=== PATIENT | male | born 1985 ===

== ENCOUNTER 2017-03-22 13:39 | Emergency (ER) | payer OTHER ==
[2017-03-22 13:53] VITALS: TEMP 98.1; O2SAT 98; BMI 31.3
[2017-03-22] MEDS ORDERED: Naproxen 550 mg Tab PO STA (14:21)
[2017-03-22] MEDS ORDERED: Naproxen 550 mg Tab PO ONE (14:25)
--- NOTE | 2017-03-22 14:36 | C.PDOC ---
History Of Present Illness 31 y/o male presents to ED with complaints of left heel pain for 3 weeks. Pain worse first thing in the morning and when walking. Patient denies injury, numbness, tingling, changes in sensation or any other complaints at this time. Time Seen by Provider: 03/22/17 14:01 Chief Complaint (Nursing): Lower Extremity Problem/Injury History Per: Patient History/Exam Limitations: no limitations Onset/Duration Of Symptoms: Days Current Symptoms Are (Timing): Still Present Past Medical History Reviewed: Historical Data, Nursing Documentation, Vital Signs Vital Signs: Last Vital Signs Temp 98.1 F 03/22/17 13:53 Pulse 78 03/22/17 14:49 Resp 16 03/22/17 14:49 BP 140/85 03/22/17 14:49 Pulse Ox 98 03/22/17 15:14 Family History: States: No Known Family Hx - Social History Hx Alcohol Use: No Hx Substance Use: No - Immunization History Hx Tetanus Toxoid Vaccination: No Hx Influenza Vaccination: No Hx Pneumococcal Vaccination: No Review Of Systems Except As Marked, All Systems Reviewed And Found Negative. Musculoskeletal: Positive for: Leg Pain, Foot Pain Skin: Negative for: Rash Neurological: Negative for: Weakness, Numbness Physical Exam - Physical Exam Appears: Non-toxic, No Acute Distress Skin: Normal Color, Warm Head: Atraumatic, Normacephalic Eye(s): bilateral: Normal Inspection, EOMI Nose: Normal Oral Mucosa: Moist Chest: Symmetrical Respiratory: No Accessory Muscle Use Extremity: Normal ROM, Tenderness (To left plantar aspect of foot ), No Calf Tenderness, Capillary Refill (<2 seconds), No Deformity, No Swelling Extremity: Bilateral: Normal Color And Temperature, Normal ROM Pulses: Left Dorsalis Pedis: Normal, Right Dorsalis Pedis: Normal Neurological/Psych: Oriented x3, Normal Motor, Normal Sensation Gait: Steady ED Course And Treatment O2 Sat by Pulse Oximetry: 98 (RA) - Other Rad Left foot X-Ray: Interpreted by Me, Viewed By Me Interpretation: No fracture or dislocation Progress Note: Discussed with patient treatment and prevention of Plantar Fasciitis. Patient was discharged with pain medication and information on diagnosis and advised to follow up with clinic Reevaluation Time: 14:25 Reassessment Condition: Improved Disposition - Disposition Referrals: [facility] [Outside] Disposition: HOME/ ROUTINE Disposition Time: 14:33 Condition: STABLE Additional Instructions: Use daily icing, stretching, and NSAID therapy. If symptoms persist, see a mixer operator helper hot metal for night splint and injections to the area. Return to ER if symptoms persist or worsen. Prescriptions: Naproxen [Naprosyn] 1 tab PO BID PRN #20 tab PRN Reason: Pain Instructions: Plantar Fasciitis (ED) Print Language: MALAWIAN - Clinical Impression Clinical Impression: Plantar fasciitis - Scribe Statement The provider has reviewed the documentation as recorded by the Kapil Grossman All medical record entries made by the Kapil were at my direction and personally dictated by me. I have reviewed the chart and agree that the record accurately reflects my personal performance of the history, physical exam, medical decision making, and the department course for this patient. I have also personally directed, reviewed, and agree with the discharge instructions and disposition.
[2017-03-22 14:50] VITALS: BP 140/85; PULSE 78; RESP 16
--- NOTE | 2017-03-22 15:17 | RAD ---
PROCEDURE: Left Foot Radiographs. HISTORY: pain COMPARISON: None available. FINDINGS: BONES: No acute displaced fracture. JOINTS: No dislocation. SOFT TISSUES: Soft tissue swelling. No evidence of radiopaque foreign body. OTHER FINDINGS: None. IMPRESSION: No acute displaced fracture, dislocation, or significant joint effusion identified. If symptoms persist, or if there is continued clinical concern, x-ray follow-up in 7-10 days should be considered.
== END 2017-03-22 14:49 | disposition home or self-care (01) ==
LOC: C.ER 13:39
DX: M72.2 Plantar fascial fibromatosis (principal)

== ENCOUNTER 2017-05-25 20:59 | Emergency (ER) | payer OTHER ==
[2017-05-25 21:00] VITALS: BMI 31.3
[2017-05-25] MEDS ORDERED: Sodium Chloride 0.9% 1,000 ML ONE (21:55)
[2017-05-25] MEDS ORDERED: Sodium Chloride 0.9% 1,000 ML IV ONE (21:59)
[2017-05-25 22:09] LABS: BASO # 0.1 K/uL (0.0-0.2); BASO % 0.5 % (0.0-2.0); EOS # 0.2 K/uL (0.0-0.7); EOS % 1.1 % (0.0-4.0); HEMATOCRIT 44.4 % (35.0-51.0); LYMPH # 1.5 K/uL (1.0-4.3); MEAN CELL VOLUME 86.7 fL (80.0-94.0); MEAN CORPUSCULAR HEMOGLOBIN 29.7 pg (27.0-31.0); MEAN CORPUSCULAR HGB CONC 34.2 g/dL (33.0-37.0); MEAN PLATELET VOLUME 8.1 fL (7.2-11.7); MONO # 0.9 K/uL (0.0-0.8); PLATELET COUNT 258 K/uL (130-400); RED CELL DISTRIBUTION WIDTH 13.1 % (11.5-14.5); WHITE BLOOD COUNT 17.2 K/uL (4.8-10.8)
[2017-05-25 22:13] LABS: RBC URINE 1 /hpf (0-3); URINE BILIRUBIN NEGATIVE (NEGATIVE); URINE BLOOD NEGATIVE (NEGATIVE); URINE COLOR Yellow (YELLOW); URINE GLUCOSE (UA) NORMAL (Normal); URINE KETONE NEGATIVE (NEGATIVE); URINE LEUKOCYTE ESTERASE NEG Leu/uL (Negative); URINE PROTEIN NEGATIVE (NEGATIVE); URINE UROBILINOGEN NORMAL mg/dL (0.2-1.0); WBC URINE < 1 /hpf (0-5)
[2017-05-25 22:17] LABS: CHLORIDE 97 mmol/L (98-107)
[2017-05-25 22:18] LABS: POTASSIUM 3.9 mmol/L (3.6-5.2); SODIUM 140 mmol/L (132-148)
[2017-05-25 22:20] LABS: ALB/GLOB RATIO 1.5 (1.0-2.1); ALKALINE PHOSPHATASE 79 U/L (38-126); ALT/SGPT 47 U/L (21-72); AST/SGOT 43 U/L (17-59); BILIRUBIN,TOTAL 0.6 mg/dL (0.2-1.3); BLOOD UREA NITROGEN 21 mg/dL (9-20); CARBON DIOXIDE 24 mmol/L (22-30); GFR AFRICAN-AMERICAN > 60; GLUCOSE,RANDOM 98 mg/dL (75-110); TOTAL PROTEIN 8.2 g/dL (6.3-8.3)
[2017-05-25 22:21] LABS: CALCIUM 9.1 mg/dl (8.6-10.4)
[2017-05-25] MEDS ORDERED: Iodixanol 320 MG/ML 100 ML BOTTLE IV ONE (22:55)
--- NOTE | 2017-05-25 22:56 | C.PDOC ---
History Of Present Illness 32 year old male presents to the ED with complaints of epigastric pain beginning just prior to arrival. Patient notes two episodes of vomiting. He denies fever, cough, cp, diarrhea or other complaints at this time. Time Seen by Provider: 05/25/17 22:26 Chief Complaint (Nursing): Abdominal Pain History Per: Patient History/Exam Limitations: no limitations Current Symptoms Are (Timing): Still Present Location Of Pain/Discomfort: Epigastric Radiation Of Pain To:: None Quality Of Discomfort: "Pain" Associated Symptoms: Nausea, Vomiting. denies: Fever, Chills, Diarrhea Exacerbating Factors: None Alleviating Factors: None Recent travel outside of the [place]: No Past Medical History Reviewed: Historical Data, Nursing Documentation, Vital Signs Vital Signs: Last Vital Signs Temp 98.1 F 05/25/17 23:50 Pulse 84 05/25/17 23:50 Resp 19 05/25/17 23:50 BP 121/74 05/25/17 23:50 Pulse Ox 99 05/26/17 00:48 Family History: States: Unknown Family Hx - Social History Hx Alcohol Use: No Hx Substance Use: No - Immunization History Hx Tetanus Toxoid Vaccination: No Hx Influenza Vaccination: No Hx Pneumococcal Vaccination: No Review Of Systems Constitutional: Negative for: Fever, Chills Cardiovascular: Negative for: Chest Pain, Palpitations Respiratory: Negative for: Cough, Shortness of Breath Gastrointestinal: Positive for: Nausea, Vomiting, Abdominal Pain. Negative for : Diarrhea Physical Exam - Physical Exam Appears: Non-toxic, No Acute Distress Skin: Warm, Dry Head: Atraumatic Eye(s): bilateral: Normal Inspection Oral Mucosa: Moist Neck: Supple Chest: Symmetrical, No Deformity Cardiovascular: Rhythm Regular, No Murmur Respiratory: Normal Breath Sounds, No Rales, No Rhonchi, No Wheezing Gastrointestinal/Abdominal: Soft, Tenderness (epigastric tenderness), No Distention, No Guarding, No Rebound Extremity: Normal ROM, No Tenderness Neurological/Psych: Oriented x3 Gait: Steady ED Course And Treatment - Laboratory Results Result Diagrams: 05/25/17 22:05 05/25/17 22:05 ECG: Interpreted By Me, Viewed By Me ECG Rhythm: Sinus Rhythm Interpretation Of ECG: No ST/T wave changes. Rate From EC O2 Sat by Pulse Oximetry: 99 (room air ) - CT Scan/US CT Abdomen and Pelvis With Intravenous Contrast Other Rad Studies (CT/US): Read By Radiologist, Radiology Report Reviewed CT/US Interpretation: FINDINGS: Lower thorax: The visualized portions of the lung bases are normal. ABDOMEN: Liver: There are no focal liver lesions present. Gallbladder and bile ducts: The gallbladder is contracted but otherwise normal. No calcified stones. No ductal dilation. Pancreas: The pancreas is normal. No ductal dilation. Spleen: The spleen is normal. Adrenals : The adrenal glands are normal. Kidneys and ureters: The kidneys are normal. No hydronephrosis. Stomach and bowel: Stomach is predominantly decompressed. There is mild constipation the. proximal colon. There is no evidence of intestinal obstruction. No mucosal thickening. Appendix: A normal appendix is identified. PELVIS: Bladder: Bladder is predominantly decompressed and grossly unremarkable. Reproductive: The prostate gland and seminal vesicles are normal. ABDOMEN and PELVIS: Intraperitoneal space: There is no evidence of free intraperitoneal fluid. There is no free. intraperitoneal air. Bones/ joints: No acute fracture. No dislocation. Soft tissues: Unremarkable. Vasculature: The aorta is normal. No abdominal aortic aneurysm. Lymph nodes: There is no evidence of lymphadenopathy. IMPRESSION: No acute findings Progress Note: EKG, adomen pelvis CT, and labs were ordered. Patient was given zofran and IV fluids. Medical Decision Making Medical Decision Making: abdominal pain - consider gastritis, pancreatitis pud, gerd, gastroentertiis, colitis- labs imaging pending pt reasseseD: states feeling improved. non specific leukocytosis. no e/o of colitis, appendciits, gallbladder pathology. pt asking for dc outpt f/u and return precautions advsied. Disposition - Disposition Referrals: [facility] [Outside] [facility] at [facility] [Outside] Justin Michelle MD [Staff Provider] - Non [facility] Provider, [Primary Care Provider] - Disposition: HOME/ ROUTINE Disposition Time: 12:45 Condition: STABLE Additional Instructions: please followup with specialsit. return to er with worsening symptoms or concerns. please discuss your lab results with your doctor. you may need further testing. Prescriptions: Ondansetron ODT [Zofran ODT] 4 mg PO Q8 PRN #15 odt PRN Reason: Nausea/Vomiting Instructions: Acute Abdominal Pain (ED), Leukocytosis (ED) Forms: [facility] (Qatari) - Clinical Impression Clinical Impression: Abdominal pain, Leukocytosis - Scribe Statement The provider has reviewed the documentation as recorded by the Olgaibty Delgado All medical record entries made by the Kapil were at my direction and personally dictated by me. I have reviewed the chart and agree that the record accurately reflects my personal performance of the history, physical exam, medical decision making, and the department course for this patient. I have also personally directed, reviewed, and agree with the discharge instructions and disposition.
[2017-05-25 23:00] LABS: EOSINOPHIL 1 % (0-4); NEUTROPHIL 86 % (50-75); TOTAL CELLS COUNTED 100
[2017-05-25 23:51] VITALS: BP 121/74; PULSE 84; RESP 19; TEMP 98.1
--- NOTE | 2017-05-25 23:53 | CT ---
EXAM: CT Abdomen and Pelvis With Intravenous Contrast CLINICAL HISTORY: 32 years old, male; Pain; Abdominal pain; Additional info: Abd pain leukocytosis TECHNIQUE: Axial computed tomography images of the abdomen and pelvis with intravenous contrast. All CT scans at this facility use one or more dose reduction techniques, viz.: automated exposure control; ma/kV adjustment per patient size (including targeted exams where dose is matched to indication; i.e. head); or iterative reconstruction technique. Coronal and sagittal reformatted images were created and reviewed. CONTRAST: 100 mL of [id number] administered intravenously. COMPARISON: No relevant prior studies available. FINDINGS: Lower thorax: The visualized portions of the lung bases are normal. ABDOMEN: Liver: There are no focal liver lesions present. Gallbladder and bile ducts: The gallbladder is contracted but otherwise normal. No calcified stones. No ductal dilation. Pancreas: The pancreas is normal. No ductal dilation. Spleen: The spleen is normal. Adrenals: The adrenal glands are normal. Kidneys and ureters: The kidneys are normal. No hydronephrosis. Stomach and bowel: Stomach is predominantly decompressed. There is mild constipation the proximal colon. There is no evidence of intestinal obstruction. No mucosal thickening. Appendix: A normal appendix is identified. PELVIS: Bladder: Bladder is predominantly decompressed and grossly unremarkable. Reproductive: The prostate gland and seminal vesicles are normal. ABDOMEN and PELVIS: Intraperitoneal space: There is no evidence of free intraperitoneal fluid. There is no free intraperitoneal air. Bones/joints: No acute fracture. No dislocation. Soft tissues: Unremarkable. Vasculature: The aorta is normal. No abdominal aortic aneurysm. Lymph nodes: There is no evidence of lymphadenopathy. IMPRESSION: No acute findings.
[2017-05-26 00:05] VITALS: O2SAT 99
--- NOTE | 2017-05-28 20:18 | CARD ---
APPROVED REPORT EKG Measurement Heart [id number] <Conclusion> Normal sinus rhythm Normal ECG
== END 2017-05-26 00:18 | disposition home or self-care (01) ==
LOC: SUPCPDRO 20:59 → C.ER 20:59
DX: D72.829 Elevated white blood cell count, unspecified (principal); R10.9 Unspecified abdominal pain
CPT/HCPCS: 74177; 80053; 81001; 83690; 85025; 93005; 96361; 96374; 99285; J2405; J7040; Q9967

== ENCOUNTER 2018-09-08 19:22 | Emergency (ER) | payer SELFPAY ==
[2018-09-08 19:23] VITALS: BMI 31.3
[2018-09-08 19:31] VITALS: RESP 20; TEMP 98; O2SAT 99
[2018-09-08] MEDS ORDERED: Tdap Vaccine 0.5 ml Vial (10-64 yrs) IM ONE ×2 (19:46→20:35)
--- NOTE | 2018-09-08 19:46 | C.PDOC ---
History Of Present Illness 33 y/o male with no significant PMH presents to ED c/o left hand pain and wound s/p injury this afternoon at 3:30pm. 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 States he missed the wall and the drill entered his left hand near the left 2nd MCP. Has not taken any medication for pain. Since the injury, patient is having difficulty moving the left 2nd digit secondary to pain. Unknown last tetanus. Denies numbness, paresthesias, weakness, injury elsewhere, or any other associated complaints. Time Seen by Provider: 09/08/18 19:40 Chief Complaint (Nursing): Upper Extremity Problem/Injury History Per: Patient History/Exam Limitations: no limitations Onset/Duration Of Symptoms: Hrs Current Symptoms Are (Timing): Still Present Past Medical History Reviewed: Historical Data, Nursing Documentation, Vital Signs Vital Signs: Last Vital Signs Temp 98 F 09/08/18 19:25 Pulse 84 09/08/18 19:25 Resp 20 09/08/18 19:25 BP 144/90 09/08/18 19:25 Pulse Ox 99 09/08/18 19:25 - Medical History PMH: No Chronic Diseases Surgical History: No Surg Hx Family History: States: Unknown Family Hx - Social History Hx Alcohol Use: Yes Hx Substance Use: No - Immunization History Hx Tetanus Toxoid Vaccination: No Hx Influenza Vaccination: No Hx Pneumococcal Vaccination: No Review Of Systems Except As Marked, All Systems Reviewed And Found Negative. Constitutional: Negative for: Fever Cardiovascular: Negative for: Chest Pain Respiratory: Negative for: Shortness of Breath Gastrointestinal: Negative for: Nausea, Vomiting Musculoskeletal: Positive for: Hand Pain Skin: Positive for: Lesions (to left 2nd digit) Neurological: Negative for: Numbness, Dizziness, Other (paresthesia) Physical Exam - Physical Exam Appears: Well, Non-toxic, No Acute Distress Skin: Warm, Dry Head: Atraumatic, Normacephalic Eye(s): bilateral: Normal Inspection, PERRL, EOMI Neck: Normal ROM Chest: Symmetrical Respiratory: No Accessory Muscle Use Extremity: Normal ROM (of all other digits), Capillary Refill (< 2 sec), Swelling (and mild erythema to the 2nd digit at palmar and dorsal sides near MCP), Other (0.5 cm open puncture wound at the left MCP joint of palmar aspect of 2nd digit, No active bleeding; Decreased ROM to the 2nd digit secondary to pain; Neurovascularly intact) Pulses: Left Radial: Normal, Right Radial: Normal Neurological/Psych: Oriented x3, Normal Cranial Nerves (2-12 grossly intact) Gait: Steady ED Course And Treatment - Laboratory Results Result Diagrams: 09/08/18 21:35 09/08/18 21:35 O2 Sat by Pulse Oximetry: 99 (RA) Pulse Ox Interpretation: Normal Medical Decision Making Medical Decision Making: Impression: Hand injury Initial Plan: --Left hand x-ray --Tetanus booster Reviewed imaging, + foreign body (screw) appears at the level of the MCP on left 2nd digit. Paged hand on-call, Dr. Gross. 21:[address] Gross and reviewed imaging, requests pre-op blood work and IV zosyn, advises no cultures. Advises discharge on Keflex. Dr. Gross recommends patient follow up in the office of Dr. Snow this week, will require surgery for removal of foreign body. Dr. Gross states Dr. Snow is aware of case and patient's information; Dr. Snow will be following the case. Bloodwork shows mild hypokalemia, replaced with 40mEq KCl. Patient notified and is agreeable to plan. Translation provided by nurse Okeefe to ensure patient understanding. Wound dressed with bacitracin and dressing, hand wrapped in TIFFANY bandage. Diagnostic testing results and plan of care discussed with patient. Strict instructions given regarding prescription use, importance of followup, and signs/symptoms to return to ER including worsening pain, signs of infection, fever, chills, or any other new/worsening symptoms. Pt verbalized understanding of discussion. Patient is A&Ox3, ambulating with steady gait, with vital signs stable for discharge. Disposition - Disposition Referrals: Marlo Snow MD [Staff Provider] - Disposition: HOME/ ROUTINE Disposition Time: 23:15 Condition: GOOD Additional Instructions: Necesitar jessie ciruga para quitar el tornillo de douglas dedo. Keflex cada 6 horas emanuel 1 semana Cambiar el apsito a diario, aplicar bacitracina y reparar. Naproxeno todos los lindsey con la comida necesaria para el dolor. Mantenga la herida limpia, seca y cubierta. Llame a la oficina del Dr. Edy osborn para establecer seguimiento. Regrese a la [place] de emergencias con cualquier sntoma nuevo o que empeore Prescriptions: Bacitracin Ointment [Bacitracin] 1 appl TOP DAILY #1 tube Cephalexin [Keflex] 500 mg PO QID 7 Days #28 capsule Naproxen [Naprosyn] 500 mg PO DAILY PRN #14 tablet PRN Reason: Pain, Moderate (4-7) Instructions: Foreign Body in Skin Forms: Gen Discharge Inst Georgian, [employer] (Georgian), Work Excuse Print Language: ARMENIAN - Clinical Impression Clinical Impression: Foreign body hand, Puncture wound, hand - PA / FIN[employer]CIAL [employer]IRE[employer] PL[employer] SPECIALIST / Resident Statement MD/DO has reviewed & agrees with the documentation as recorded. - Scribe Statement The provider has reviewed the documentation as recorded by the Scribe Lisa Baxter All medical record entries made by the Scribe were at my direction and personally dictated by me. I have reviewed the chart and agree that the record accurately reflects my personal performance of the history, physical exam, medical decision making, and the department course for this patient. I have also personally directed, reviewed, and agree with the discharge instructions and disposition.
[2018-09-08] MEDS ORDERED: Piperacillin/Tazobact 3.375 GM in Sodium Chloride 100 ML IVPB STA (21:10)
[2018-09-08] MEDS ORDERED: Piperacillin/Tazobact 3.375 gm 100 ML IVPB ONE (21:40)
[2018-09-08 21:45] LABS: BASO # 0.1 K/uL (0.0-0.2); BASO % 0.9 % (0.0-2.0); EOS # 0.6 K/uL (0.0-0.7); EOS % 5.5 % (0.0-4.0); HEMOGLOBIN 15.1 g/dL (12.0-18.0); LYMPH # 3.2 K/uL (1.0-4.3); LYMPH % 30.3 % (20.0-40.0); MEAN CELL VOLUME 88.3 fL (80.0-94.0); MEAN PLATELET VOLUME 7.8 fL (7.2-11.7); MONO # 0.9 K/uL (0.0-0.8); MONO % 8.2 % (0.0-10.0); NEUT # 5.8 K/uL (1.8-7.0); NEUT % 55.1 % (50.0-75.0); RBC 5.04 Mil/uL (4.40-5.90); RED CELL DISTRIBUTION WIDTH 13.2 % (11.5-14.5); WHITE BLOOD COUNT 10.5 K/uL (4.8-10.8)
[2018-09-08 21:51] LABS: ALB/GLOB RATIO 1.6 (1.0-2.1); ALT/SGPT 58 U/L (21-72); AST/SGOT 45 U/L (17-59); BLOOD UREA NITROGEN 16 mg/dL (9-20); CALCIUM 9.1 mg/dl (8.6-10.4); GFR NON-AFRICAN AMERICAN > 60
[2018-09-08] MEDS ORDERED: Potassium Chloride 20 mEq ER Tab PO STA (21:52)
[2018-09-08] MEDS ORDERED: Potassium Chloride 20 mEq ER Tab PO ONE (22:02)
[2018-09-08] MEDS ORDERED: Bacitracin 500 Units/gm Oint Foilpak UD ONE (23:05)
[2018-09-08 23:25] VITALS: BP 135/88; PULSE 78
--- NOTE | 2018-09-09 11:54 | RAD ---
PROCEDURE: Left Hand Radiographs. HISTORY: penetrating injury carter side MCP joint 2nd digit COMPARISON: None. FINDINGS: BONES: Bone alignment and mineralization are normal. There is no acute displaced fracture or bone destruction. JOINTS: Normal. No osteoarthritic changes. SOFT TISSUES: There is a radiopaque foreign body (screw) in the carter soft tissues of the proximal 2nd digit and there are multiple tiny radiopaque fragments in the palmar soft tissues. There is diffuse soft tissue swelling in the 2nd digit. OTHER FINDINGS: None. IMPRESSION: No acute fracture or dislocation. Metallic screw in the carter soft tissues of the proximal 2nd digit with multiple tiny metallic fragments and diffuse soft tissue swelling of the 2nd digit.
== END 2018-09-08 23:25 | disposition home or self-care (01) ==
LOC: C.ER 19:22
DX: S61.442A Puncture wound with foreign body of left hand, initial encounter (principal); W29.8XXA Contact with other powered hand tools and household machinery, initial encounter; Y92.89 Other specified places as the place of occurrence of the external cause; Y99.0 Civilian activity done for income or pay; E87.6 Hypokalemia
CPT/HCPCS: 73130; 80053; 85025; 85610; 85730; 86850; 86900; 90471; 90715; 96365; 99285; J2543; J7050